=== PATIENT | female | born 1995 | race Caucasian/White ===

== ENCOUNTER 2022-04-11 16:13 | Emergency (ER) | payer MEDICAID ==
[~2022-04-11] VITALS: Ht 167.6 cm; Wt 123.2 kg
[~2022-04-11 16:13] MED LIST: NO HOME MEDS
[2022-04-11 16:42] VITALS: BP 135/85
[2022-04-11] MEDS ORDERED: CLIN300C70 PO (17:12)
[2022-04-11] MEDS ORDERED: HYDR-3965 PO (17:12)
[2022-04-11] MEDS ORDERED: ONDA4TAB12 PO (17:12)
== END 2022-04-11 17:20 | disposition home or self-care (01) ==
LOC: ER 16:14
DX: K04.7 Periapical abscess without sinus (principal); Z88.0 Allergy status to penicillin
CPT/HCPCS: 99283

== ENCOUNTER 2023-05-05 18:06 | Emergency (ER) | payer MEDICAID ==
[~2023-05-05] VITALS: Ht 167.6 cm; Wt 110.0 kg
[~2023-05-05 18:06] MED LIST changes: +ONDA4TAB12 PO
[2023-05-05] MEDS ORDERED: ketorolac tromethamine 15mg/ml inj. IM ONE (18:25)
[2023-05-05 19:34] LABS: BASOPHILS # (AUTO) 0.1 X10'3 (0-0.2); BASOPHILS % (AUTO) 0.5 % (0-1); EOSINOPHILS # (AUTO) 0.2 X10'3 (0-0.9); HEMATOCRIT 39.7 % (35.0-45.0); MEAN CORPUSCULAR HEMOGLOBIN 28.5 PG (27.0-31.0); MEAN CORPUSCULAR HGB CONC 32.6 g/dL (33.0-36.5); MEAN CORPUSCULAR VOLUME 87.3 FL (78-98); MEAN PLATELET VOLUME 8.9 FL (7.4-10.4); MONOCYTES # (AUTO) 0.8 X10'3 (0-0.9); MONOCYTES % (AUTO) 7.5 % (2-12); NEUTROPHILS # (AUTO) 7.6 X10'3 (1.8-7.7); PLATELET COUNT 285 X10'3 (140-440); RED BLOOD COUNT 4.55 X10'6 (4.20-5.60); RED CELL DISTRIBUTION WIDTH 14.2 % (11.5-14.5); WHITE BLOOD COUNT 10.6 X10'3 (4.5-11.0)
[2023-05-05 19:48] LABS: ALANINE AMINOTRANSFERASE 17 U/L (12-78); ALBUMIN 3.4 G/DL (3.4-5.0); ALBUMIN/GLOBULIN RATIO 0.7 (1.1-1.5); ALKALINE PHOSPHATASE 72 IU/L (46-116); ANION GAP 9 (8-16); ASPARTATE AMINO TRANSFERASE 18 U/L (10-37); BILIRUBIN,TOTAL 0.2 MG/DL (0.1-1.0); BLOOD UREA NITROGEN 7 MG/DL (7-18); BUN/CREATININE RATIO 10.9 (10.0-20.0); CHLORIDE 99 MMOL/L (99-107); CREATININE 0.64 MG/DL (0.40-0.90); GLUCOSE 93 MG/DL (70-104); LIPASE 20 U/L (16-77); POTASSIUM 3.6 MMOL/L (3.5-5.1); SODIUM 135 MMOL/L (135-145); TOTAL CARBON DIOXIDE 26.8 MMOL/L (24-32); TOTAL PROTEIN 8.6 G/DL (6.4-8.2); eCRCL 125 ML/MIN; eGFR > 90 ML/MIN
[2023-05-05 21:02] LABS: URINE HCG NEGATIVE (NEG)
[2023-05-05 21:13] LABS: BILIRUBIN,URINE NEGATIVE (Neg); CLARITY,URINE CLEAR (Clear); COLOR,URINE STRAW (Yellow); GLUCOSE, URINE NEGATIVE (Neg); KETONES,URINE NEGATIVE (Neg); LEUKOCYTE ESTERASE ,URINE NEGATIVE (Neg); NITRITES, URINE NEGATIVE (Neg); OCCULT BLOOD,URINE TRACE-INTACT (Neg); PROTEIN,URINE NEGATIVE (Neg); UROBILINOGEN,URINE 0.2 E.U/dL (0.2-1.0)
[2023-05-05 22:01] LABS: UA COLLECTION TYPE CLN CATCH MIDSTREAM
[2023-05-05 22:06] LABS: BACTERIA,URINE NONE SEEN /HPF (Neg); RBC,URINE 0-2 /HPF (0-2); SQUAMOUS EPITHELIAL CELL,UR FEW /LPF (FEW); WBC,URINE 0-4 /HPF (0-4)
[2023-05-05] MEDS ORDERED: NITR100C11 PO (22:56)
[2023-05-05] MEDS ORDERED: BUSP15TA3 PO (22:56)
[2023-05-05] MEDS ORDERED: FAMO-129 PO (23:14)
[2023-05-05] MEDS ORDERED: ONDA8TAB13 PO (23:14)
[2023-05-05] MEDS ORDERED: ondansetron/PF 4mg/2ml inj IV ONE (23:15)
[2023-05-05 23:34] VITALS: BP 95/75; PULSE 70; RESP 16; TEMP 98; O2SAT 98
== END 2023-05-05 23:37 | disposition home or self-care (01) ==
LOC: ER 18:06
DX: M54.59 Other low back pain (principal); R11.0 Nausea
CPT/HCPCS: 36415; 80053; 81001; 81025; 83690; 85025; 96372; 96374; 99284; J1885; J2405; J7030

== ENCOUNTER 2023-08-17 08:19 | Outpatient (CLI) | payer MEDICAID ==
[~2023-08-17 08:19] MED LIST changes: +BUSP15TA3 PO; +FAMO-129 PO; +NITR100C11 PO; -NO HOME MEDS; -ONDA4TAB12 PO; +ONDA8TAB13 PO
== END 2023-08-17 23:59 | disposition home or self-care (01) ==
LOC: RAD 08:19
PROVIDERS: ATTEND Student in an Organized Health Care Education/Training Program
DX: R10.12 Left upper quadrant pain (principal)
CPT/HCPCS: 76700

== ENCOUNTER 2025-01-27 16:16 | Emergency (ER) | payer MEDICAID ==
[~2025-01-27] VITALS: Ht 170.2 cm; Wt 112.8 kg
[~2025-01-27 16:16] MED LIST changes: +ONDA-245 PO; -ONDA8TAB13 PO
[2025-01-27 16:20] VITALS: TEMP 97.5
--- NOTE | 2025-01-27 16:32 | ELECTROCARDIOGRAPH REPORT ---
[facility] Test Date: 2025-01-27 Test Time: 16:31:04 Pat Name: DAVID RO Department: EMERGENCY ROOM Room: Gender: F Technician Inventory Specialist: VANNESA : 1995 Requested By: OLGA LORA Order Number: [id number] Reading MD: Measurements Intervals [place] Rate: 76 P: 50 NH: 161 QRS: 86 QRSD: 97 T: 43 QT: 393 QTc: 442 Interpretive Statements Sinus rhythm Baseline wander in lead(s) V2 Please click the below link to view image of tracing.
--- NOTE | 2025-01-27 16:56 | RADIOLOGY REPORT ---
EXAM: DI CHEST,SINGLE VIEW HISTORY: CP COMPARISON: None TECHNIQUE: PA upright view of the chest was performed. FINDINGS: No pneumothorax, consolidative infiltrates, or pulmonary edema. There is a calcified granuloma in the right lung base medially. The heart is not enlarged. IMPRESSION: No acute intrathoracic process.
[2025-01-27 17:15] LABS: MEAN PLATELET VOLUME 10.2 FL (7.4-10.4); RED CELL DISTRIBUTION WIDTH 14.4 % (11.5-14.5)
[2025-01-27 17:37] LABS: CREATININE 0.63 MG/DL (0.40-0.90); PRO BRAIN NATRIURETIC PEPTIDE 45 PG/ML (0-125); TOTAL CARBON DIOXIDE 28.4 MMOL/L (24-32); eCRCL 130 ML/MIN; eGFR > 90 ML/MIN
[2025-01-27 19:21] VITALS: BP 114/85; PULSE 64; RESP 16; O2SAT 98
--- NOTE | 2025-01-27 19:28 | Physician Documentation ---
History of Present Illness ~ Chief Complaint: Chest Pain Stated Complaint: HEADACHE/CP Time Seen by MD: 18:56 Primary Medical Doctor: [facility] Patient is seen today with complaints of chest pain and upper back pain. Patient states she ate some scalding hot potatoes or mashed potatoes the other day in his not sure if this is contributing. Patient denies any shortness of breath or abdominal pain or nausea, vomiting, diarrhea. She has no other concern or complaint at this time. Tetanus within 5 Years?: No Allergies: Coded Allergies: Penicillins (Verified Allergy, Unknown, 05/05/23) egg (Verified Allergy, Unknown, RASH, LIPS SWELL, ITCHY THROAT, 05/05/23) Active Prescriptions See Medication Reconciliation Form. Medication Reconciliation Scheduled Buspirone HCl (Buspirone HCl), 1 TAB PO BID, (Reported) Famotidine (Pepcid), 1 TAB PO Q12H Nitrofurantoin/Nitrofuran Mac (Nitrofurantoin [facility]-Mcr 100 Mg), 1 CAP PO BID, (Reported) Ondansetron 8mg ODT (Ondansetron Odt), 1 TAB PO Q6H Past Medical History Past Medical History: No Pertinent History Past Surgical History: no surgical history Lives with: Family Lives In: Home Occupation: child Review of Systems Constitutional: Denies: chills, fever, weakness Eyes: Denies: pain, blurred vision ENT: Denies: ear pain, nose pain, throat pain, mouth pain Respiratory: Denies: cough, shortness of breath Cardiovascular: Denies: chest pain, palpitations Gastrointestinal: Denies: abdominal pain, nausea, vomiting Genitourinary: Denies: burning, dysuria Female Genitalia: Denies: vaginal discharge, pelvic pain Neurological: Denies: headache, dizziness Musculoskeletal: Denies: pain, swelling Integumentary: Denies: rash, lesions Allergic/Immunologic: Denies: hives, itching Hematologic/Lymphatic: Denies: no symptoms reported Psychiatric: Denies: depression, anxiety Physical Exam Vital Signs: Temperature: 97.5, Source: Temporal, Heart Rate: 79, Respiratory Rate: 18, BP: 141/81, Pulse Oximetry: 99, Weight: 112.800 Oxygen Flow Rate: 0 Physical Exam General: Awake and Alert, no acute distress. HEENT: Conjunctiva pink, Sclera clear, Mucus Membranes moist. Neck: Supple without masses and tenderness. Resp: Unlabored. Lungs clear to auscultation bilaterally. Chest: Patient on exam does have reproducible chest pain. Heart: Regular Rate and rhythm, normal S1 and S2 without murmur, rub or gallop. Musculoskeletal: Patient on exam does have significant tenderness to palpation of the paraspinal muscles worse on the left side in the interscapular area that does reproduce her back pain on exam. Abdomen: Soft and non tender no organomegaly Extremities: No cyanosis,clubbing or edema. Skin: Warm and Dry. Progress Results/Orders Results/Orders Vital Signs 01/27/25 16:20 Temp 97.5 Pulse 79 Resp 18 B/P (MAP) 141/81 Pulse Ox 99 O2 Flow Rate 0 Laboratory Tests Test 01/27/25 16:34 01/27/25 18:41 White Blood Count 10.0 Red Blood Count 4.22 Hemoglobin 12.0 Hematocrit 36.2 Mean Corpuscular Volume 85.7 Mean Corpuscular Hemoglobin 28.4 Mean Corpuscular Hemoglobin Concent 33.1 Red Cell Distribution Width 14.4 Platelet Count 265 Mean Platelet Volume 10.2 Neutrophils (%) (Auto) 67.4 Lymphocytes (%) (Auto) 23.2 Monocytes (%) (Auto) 7.7 Eosinophils (%) (Auto) 1.2 Basophils (%) (Auto) 0.5 Neutrophils # (Auto) 6.7 Lymphocytes # (Auto) 2.3 Monocytes # (Auto) 0.8 Eosinophils # (Auto) 0.1 Basophils # (Auto) 0.0 CBC Comment Sodium Level 138 Potassium Level 3.4 L Chloride Level 103 Carbon Dioxide Level 28.4 Anion Gap 7 L Blood Urea Nitrogen 11 Creatinine 0.63 Estimated GFR/1.73 m2 > 90 BUN/Creatinine Ratio 17.5 Glucose Level 88 Calcium Level 9.1 Troponin I High Sensitivity < 4 L Troponin I High Sens Percent Delta Troponin I Hi Sens Absolute Change Pro-B-Type Natriuretic Peptide 45 Albumin 3.6 Chemistry Comments EKG/XRAY/CT/US/VASC/MRI EKG : Additional Comment EKG interpreted by myself today shows regular rate at 76 beats per minute, normal sinus rhythm, no axis deviation, no ST segment elevation or ischemic changes. Chest X-Ray : Additional Comments Chest x-ray interpreted by myself today shows no significant or large effusion or infiltrate and normal mediastinum. DIAGNOSTIC RADIOLOGY Patient: DAVID RO Medical Record: [id number] [facility] : 1995, Age: 29 Sex: Female Location: ER Patient Status: [facility] ER Service Date/Time: 01/27/251644 Ordering Physician: OLGA LORA MD Exam: CHEST,SINGLE VIEW EXAM: DI CHEST,SINGLE VIEW HISTORY: CP COMPARISON: None TECHNIQUE: PA upright view of the chest was performed. FINDINGS: No pneumothorax, consolidative infiltrates, or pulmonary edema. There is a calcified granuloma in the right lung base medially. The heart is not enlarged. IMPRESSION: No acute intrathoracic process. Electronically Signed by:PRIMITIVO JEAN-BAPTISTE MD Date & Time: 01/27/251652 Dictated by: PRIMITIVO JEAN-BAPTISTE MD Dictation date and time: 01/27/251643 Primary Care Provider: NO PRIMARY CARE PROVIDER cc: OLGA LORA MD ~ Heart Score: Heart Score Response (Comments) Value History Slightly Suspicious 0 EKG Normal 0 Age <45 0 Risk Factors No known risk factors 0 Troponin Normal limit 0 Total 0 Medical Decision Making Findings Patient is seen today with complaints of chest pain and upper back pain. Patient states she ate some scalding hot potatoes or mashed potatoes the other day in his not sure if this is contributing. Patient denies any shortness of b reath or abdominal pain or nausea, vomiting, diarrhea. She has no other concern or complaint at this time. Patient labs and chest x-ray were unremarkable. Patient was given muscle relaxer sent to patient's pharmacy. Patient will follow up with primary care in 2-5 days if no better as needed sooner. Return to ED with any worsening, concerning or changing symptoms. Departure Disposition: HOME / SELF CARE / HOMELESS Impression: Primary Impression: Chest pain Qualified Codes: R07.9 - Chest pain, unspecified Additional Impressions: Back pain Qualified Codes: M54.6 - Pain in thoracic spine Muscle spasm Condition: Stable Discharge Instructions: Nonspecific Chest Pain, Adult Additional Instructions: Patient labs and chest x-ray were unremarkable. Patient was given muscle relaxer sent to patient's pharmacy. Patient will follow up with primary care in 2-5 days if no better as needed sooner. Return to ED with any worsening, concerning or changing symptoms. Referrals: NO PRIMARY CARE PROVIDER (PCP) Prescriptions Methocarbamol (Methocarbamol) 750 Mg Tablet 1 TAB PO Q8H for 10 Days, #30 TAB 0 Refills Prov: CHAITANYA BRANDT 01/27/25 Signature Scribe Signature: No scribe Attestation: No scribCHAITANYA Banks Jan 27, 2025 19:28
[2025-01-27] MEDS ORDERED: METH-798 PO (19:34)
== END 2025-01-27 19:45 | disposition home or self-care (01) ==
LOC: ER 16:17
DX: R07.9 Chest pain, unspecified (principal); M54.6 Pain in thoracic spine; M62.838 Other muscle spasm; Z79.899 Other long term (current) drug therapy; Z88.0 Allergy status to penicillin; Z91.0120 Allergy to eggs, unspecified
CPT/HCPCS: 36415; 71045; 80048; 83880; 84484; 85025; 93005; 99285